=== PATIENT | male | born 1980 | race Caucasian/White ===

== ENCOUNTER 2018-12-28 12:48 | Emergency (ER) | payer BC, OTHER ==
[2018-12-28 13:09] VITALS: BP 111/61
[2018-12-28] MEDS ORDERED: predniSONE TAB* 20 MG PO ONE (14:01)
--- NOTE | 2018-12-28 14:02 | UC ---
Skin Complaint HPI - HPI Summary HPI Summary: was stung on left thumb by ground wasp yesterday at 2PM while at work started swelling immediately now swelling and redness has extended to mid forearm itchy no hives no wheezing no n/v/d - History of Current Complaint Chief Complaint: UCSkin Time Seen by Provider: 12/28/18 13:56 Stated Complaint: WC LEFT HAND BEE STING Hx Obtained From: Patient Onset/Duration: Sudden Onset Skin Exposure Onset/Duration: Minutes Ago Timing: Constant Onset Severity: Mild Current Severity: Mild Pain Intensity: 3 Pain Scale Used: 0-10 Numeric Location: Discrete Character: Swelling, Pruritus, Pain, Redness Aggravating Factor(s): Nothing Alleviating Factor(s): Nothing Associated Signs & Symptoms: Positive: Negative Related History: Possible Reaction to: Insect - Allergy/Home Medications Allergies/Adverse Reactions: Allergies Allergy/AdvReac Type Severity Reaction Status Date / Time No Known Allergies Allergy Verified 12/28/18 13:02 Home Medications: Home Medications diphenhydrAMINE HCl [Benadryl Allergy] 50 mg PO Q6H PRN 12/28/18 [History Confirmed 12/28/18] PMH/Surg Hx/FS Hx/Imm Hx Previously Healthy: Yes - Surgical History Surgical History: Yes Surgery Procedure, Year, and Place: ear tubes - Family History Known Family History: Positive: Non-Contributory - Social History Alcohol Use: Occasionally Substance Use Type: None Substance Use Comment - Amount & Last Used: occasional Smoking Status (MU): Heavy Every Day Tobacco Smoker Type: Cigarettes Amount Used/How Often: 1 ppd Household Exposure Type: Cigarettes - Immunization History Most Recent Tetanus Shot: 2012 Review of Systems All Other Systems Reviewed And Are Negative: Yes Constitutional: Positive: Negative Skin: Positive: Negative Eyes: Positive: Negative ENT: Positive: Negative Respiratory: Positive: Negative Cardiovascular: Positive: Negative Gastrointestinal: Positive: Negative Genitourinary: Positive: Negative Motor: Positive: Negative Neurovascular: Positive: Negative Musculoskeletal: Positive: Negative Neurological: Positive: Negative Psychological: Positive: Negative Physical Exam Triage Information Reviewed: Yes Appearance: Well-Appearing, No Pain Distress, Well-Nourished Vital Signs: Initial Vital Signs Temp 99.1 F 12/28/18 13:04 Pulse 72 12/28/18 13:04 Resp 17 12/28/18 13:04 BP 111/61 12/28/18 13:04 Pulse Ox 99 07/24/19 13:04 Vital Signs Reviewed: Yes Eyes: Positive: Conjunctiva Clear ENT: Positive: Normal ENT inspection. Negative: Nasal congestion, Trismus, Muffled voice, Hoarse voice Dental: Negative: Abscess @ Neck: Positive: Supple, Nontender Respiratory: Positive: Lungs clear, Normal breath sounds, No respiratory distress Cardiovascular: Positive: RRR Abdomen Description: Positive: Nontender, No Organomegaly. Negative: CVA Tenderness (R), CVA Tenderness (L) Musculoskeletal: Positive: Edema @ - see image Neurological Exam: Normal Psychological Exam: Normal Skin Exam: Other - see image Images Front/Back of Body, Lg ([place]): 1 - red/swollen from here down Course/Dx - Diagnoses Provider Diagnosis: Local reaction to insect sting Discharge - Sign-Out/Discharge Documenting (check all that apply): Patient Departure All imaging exams completed and their final reports reviewed: No Studies - Discharge Plan Condition: Stable Disposition: HOME Prescriptions: Cephalexin CAP* [Keflex CAP*] 500 mg PO QID #20 cap predniSONE [Prednisone 20 MG TAB] 60 mg PO DAILY #6 tab Patient Education Materials: Insect Bite or Sting (ED) Forms: *Work Release Referrals: No Primary Care Phys,NOPCP [Primary Care Provider] - Additional Instructions: elevate elevate elevate ice continue benadryl recheck in 2-3 days if not better - Billing Disposition and Condition Condition: STABLE Disposition: Home
== END 2018-12-28 14:12 | disposition home or self-care (01) ==
LOC: UCCORT 12:48
DX: T63.461A Toxic effect of venom of wasps, accidental (unintentional), initial encounter (principal); Y92.89 Other specified places as the place of occurrence of the external cause; F17.210 Nicotine dependence, cigarettes, uncomplicated
CPT/HCPCS: 99212; G0463; J7512

== ENCOUNTER 2019-06-14 20:39 | Emergency (ER) | payer OTHER ==
[2019-06-14 21:00] VITALS: BP 135/79
--- NOTE | 2019-06-14 21:14 | UC ---
Eye Complaint HPI - HPI Summary HPI Summary: woke up wednesday and left eye was swollen shut, reddened, draining, pain in the corner. patient also has nasal congestion, sore throat, headache - History of Current Complaint Chief Complaint: UCEye Stated Complaint: EYE COMPLAINT Time Seen by Provider: 06/14/19 21:05 Hx Obtained From: Patient Onset/Duration: Sudden Onset, Lasting Days Timing: Constant Severity Initially: Mild Severity Currently: Moderate Pain Intensity: 0 Location of Injury: Eye Lid (lower), Eye Lid (upper), Periorbital, Sclera Associated Signs And Symptoms: Positive: Drainage (Purulent), Swelling - Allergies/Home Medications Allergies/Adverse Reactions: Allergies Allergy/AdvReac Type Severity Reaction Status Date / Time No Known Allergies Allergy Verified 06/14/19 21:00 Home Medications: Home Medications Acetaminophen [Tylenol Extra Strength] 500 mg PO Q6HR 06/14/19 [History Confirmed 06/14/19] Pseudoephedrine HCl [Sudafed] 30 mg PO Q12HR 06/14/19 [History Confirmed ] PMH/Surg Hx/FS Hx/Imm Hx Previously Healthy: Yes - Surgical History Surgical History: Yes Surgery Procedure, Year, and Place: ear tubes - Family History Known Family History: Positive: None, Non-Contributory - Social History Alcohol Use: Occasionally Substance Use Type: None Substance Use Comment - Amount & Last Used: occasional Smoking Status (MU): Heavy Every Day Tobacco Smoker Type: Cigarettes Amount Used/How Often: 1 ppd Household Exposure Type: Cigarettes - Immunization History Most Recent Tetanus Shot: 2012 Review of Systems All Other Systems Reviewed And Are Negative: Yes Eyes: Positive: Drainage, Eye Redness, Photophobia Is Patient Immunocompromised?: No Physical Exam Triage Information Reviewed: Yes Appearance: Well-Nourished, Ill-Appearing, Pain Distress Vital Signs: Initial Vital Signs Temp 98.8 F 06/14/19 20:52 Pulse 74 06/14/19 20:52 Resp 16 06/14/19 20:52 BP 135/79 06/14/19 20:52 Pulse Ox 98 06/14/19 20:52 Vital Signs Reviewed: Yes Eyes: Positive: Conjunctiva Inflamed, Discharge ENT Exam: Normal Dental Exam: Normal Respiratory Exam: Normal Cardiovascular Exam: Normal Abdominal Exam: Normal Musculoskeletal Exam: Normal Neurological Exam: Normal Psychological Exam: Normal Eye Complaint Course/Dx - Course Course Of Treatment: hx obtained, exam performed ,meds reviewed, treated for conjunctivitis - Differential Dx/Diagnosis Differential Diagnosis/HQI/PQRI: Conjunctivitis Provider Diagnosis: Conjunctivitis, left eye Discharge ED - Sign-Out/Discharge Documenting (check all that apply): Patient Departure All imaging exams completed and their final reports reviewed: No Studies - Discharge Plan Condition: Stable Disposition: HOME Prescriptions: Erythromycin OPHTH.OINT* [Ilotycin OPHTH.OINT*] 1 applic LEFT EYE BEDTIME #1 tube Patient Education Materials: Conjunctivitis (ED) Referrals: No Primary Care Phys,NOPCP [Primary Care Provider] - Additional Instructions: 1. use the medication as prescribed. 2. Warm compresses, and good hand washing 3. FOllow up if not improving - Billing Disposition and Condition Condition: STABLE Disposition: Home - Attestation Statements Provider Attestation: I was available for consult. This patient was seen by the [facility]. The patient was not presented to, seen by, or examined by me. -Nasima
[2019-06-14] MEDS ORDERED: Erythromycin OPTH OINT* APPLIC OINT LEFT EYE ONE (21:15)
== END 2019-06-14 21:25 | disposition home or self-care (01) ==
LOC: UCCORT 20:39
DX: H10.9 Unspecified conjunctivitis (principal); F17.210 Nicotine dependence, cigarettes, uncomplicated
CPT/HCPCS: 99212; A9270-GY; G0463